=== PATIENT | female | born 1995 | race American Indian/Alaskan Native ===

== ENCOUNTER 2017-04-25 19:53 | Emergency (ER) | payer MEDICAID ==
[2017-04-25 20:02] VITALS: BP 132/76
[2017-04-25] MEDS ORDERED: TYLENOL PO ONE (20:05)
[2017-04-25] MEDS ORDERED: TYLENOL ONE (20:08)
--- NOTE | 2017-04-25 23:42 | Emergency Department Report ---
HPI - General Chief Complaint: Sore Throat Time Seen by Provider: 04/25/17 22:46 - HPI HPI: Patient is a 21-year-old male who presents to ED with his mother complaining of throat pain 7 days. Patient describes pain as throbbing in nature, 6 out of 10 intensity, nonradiating, localized to his throat. Admits pain with swallowing and eating. Patient admits fever for the first 2 days but not at the moment. Patient denies nausea/vomiting/abdominal pain/shortness of breath/chest pain/ headache. ED Past Medical Hx - Past Medical History Previous Medical History?: No - Surgical History Past Surgical History?: Yes Additional Surgical History: - Social History Smoking Status: Never Smoker Substance Use Type: None - Medications Home Medications: Home Medications Medication Instructions Recorded Confirmed Last Taken Type Ibuprofen [Motrin] 800 mg PO Q8HR PRN #30 tablet 04/25/17 Unknown Rx Nystas/Diphen/Xyl Visc/Mylanta 15 ml MM Q4H PRN #100 ml 04/25/17 Unknown Rx [Magic Mouthwash] ED Review of Systems ROS: Stated complaint: FITZPATRICK/BODY ACHE/SORE THROAT Other details as noted in HPI Constitutional: denies: chills, fever Eyes: denies: eye pain, eye discharge, vision change ENT: throat pain. denies: ear pain Respiratory: denies: cough, shortness of breath, wheezing Cardiovascular: denies: chest pain, palpitations Endocrine: no symptoms reported Gastrointestinal: denies: abdominal pain, nausea, diarrhea Genitourinary: denies: urgency, dysuria, discharge Musculoskeletal: myalgia. denies: back pain, joint swelling, arthralgia Skin: denies: rash, lesions, pruritus Neurological: denies: headache, weakness, numbness, paresthesias, confusion Psychiatric: denies: anxiety, depression Hematological/Lymphatic: denies: easy bleeding, easy bruising Physical Exam - Physical Exam Vital Signs: Vital Signs 04/25/17 19:56 Temperature 98.4 F Pulse Rate 111 H Respiratory 20 Rate Blood Pressure 132/76 O2 Sat by Pulse 100 Oximetry Physical Exam: GENERAL: Alert and oriented x3, no apparent distress, Normal Gait, atraumatic. EARS: symetrical, atraumatic, non tender, ear canal clear and moderate cerumen, tympanic membrance non inflamed. gross auditory nml bilaterally. NOSE: Nose symetrical, Nontender,Nares appeared normal. MOUTH:Mouth is well hydrated and without lesions. Tonsils nonerythematous or swollen, Uvula midline, Tongue not elevated. Mucous membranes are moist. Posterior pharynx clear, no exudate or lesions. Patent airways. NECK: Supple. Non edematous, No lymphadenopathy or thyromegaly. No C-spine tenderness LUNGS: Symetrical with respiration, No wheezing, no rales or crackles, CTAB. HEART: S1, S2 present, regular rate and rhythm without murmur, no rubs, no gallops. Non tender to palpation SKIN: Warm and dry, No lesions, No ulceration or induration present. ED Course Vital Signs 04/25/17 19:56 Temperature 98.4 F Pulse Rate 111 H Respiratory 20 Rate Blood Pressure 132/76 O2 Sat by Pulse 100 Oximetry ED Medical Decision Making - Medical Decision Making 24-year-old female presents with pharyngitis. ED course: Rapid strep tests ordered rapid strep test negative No fever in ED Vital signs stable patient is in no acute or respiratory distress. Discussed findings with patient about the positive strep. Discussed treatment in ED with patient Pt to be sent home on Motrin and a couple of days worth of prednisone. Discussed with patient follow-up with primary care physician. Patient verbally states he understands and will comply to follow-up. Critical care attestation.: If time is entered above; I have spent that time in minutes in the direct care of this critically ill patient, excluding procedure time. ED Disposition Clinical Impression: Pharyngitis Qualifiers: Pharyngitis/tonsillitis etiology: unspecified etiology Qualified Code(s): J02.9 - Acute pharyngitis, unspecified Disposition: -01 TO HOME OR SELFCARE Is pt being admited?: No Does the pt Need Aspirin: No Condition: Stable Instructions: Pharyngitis (ED) Additional Instructions: Make sure to follow up with the primary care physician as discussed. Take all your medications as you've been prescribed. If you have any worsening symptoms or develop new symptoms please return to ED immediately. Prescriptions: Ibuprofen [Motrin] 800 mg PO Q8HR PRN #30 tablet PRN Reason: Pain Nystas/Diphen/Xyl Visc/Mylanta [Magic Mouthwash] 15 ml MM Q4H PRN #100 ml PRN Reason: Sore Throat Referrals: EYAL GILES MD [Primary Care Provider] - 3-5 Days [facility] [Outside] - 3-5 Days [facility] [Outside] - 3-5 Days [facility] [Outside] - 3-5 Days Forms: Accompanied Note Time of Disposition: 23:44
[2017-04-25] MEDS ORDERED: DELTASONE PO ONE (23:44)
== END 2017-04-26 00:35 | disposition home or self-care (01) ==
LOC: ED 19:53
DX: J02.9 Acute pharyngitis, unspecified (principal); Z88.0 Allergy status to penicillin
CPT/HCPCS: 87116; 87430; 99283; J7512

== ENCOUNTER 2017-07-29 10:39 | Emergency (ER) | payer MEDICAID | END 2017-07-29 10:40 | disposition left against medical advice (07) | LOC: ED 10:39 | DX: M25.529 Pain in unspecified elbow (principal); Z88.0 Allergy status to penicillin; W18.30XA Fall on same level, unspecified, initial encounter; Y93.89 Activity, other specified; Y99.8 Other external cause status; Y92.89 Other specified places as the place of occurrence of the external cause; Z53.21 Procedure and treatment not carried out due to patient leaving prior to being seen by health care provider ==

== ENCOUNTER 2019-04-13 10:32 | Emergency (ER) | payer SELFPAY ==
--- NOTE | 2019-04-13 11:49 | Event Note ---
ED Screening Note ED Screening Note: states beginning last week had blisters on the vaginal area but they have now gone away states that she has a blister on the lip for three days states the person she is having intercourse with has herpes no dyuria no fever no abd pain no pelvic pain no n/v/d no pmhx allergy: pencillin states she did perform oral sex on the partner
--- NOTE | 2019-04-13 12:05 | Emergency Department Report ---
ED General Adult HPI - General Chief complaint: Urogenital-Female Stated complaint: POSS STD Time Seen by Provider: 04/13/19 11:45 Source: patient Mode of arrival: Ambulatory Limitations: No Limitations - History of Present Illness Initial comments: pt is a 23 yo female who presents to the ED who states states that she has a blister on the left side of the lip for three days. she states that beginning last week had blisters on the vaginal area but they have now gone away. she states the person she is having intercourse with has herpes. she denies any dyuria, no fever, no abd pain, no pelvic pain, no n/v/d. no pmhx. allergy: pencillin. states she did perform oral sex on the partner. - Related Data Previous Rx's Medication Instructions Recorded Last Taken Type Ibuprofen [Motrin] 800 mg PO Q8HR PRN #30 tablet 04/25/17 Unknown Rx Nystas/Diphen/Xyl Visc/Mylanta 15 ml MM Q4H PRN #100 ml 04/25/17 Unknown Rx [Magic Mouthwash] Acyclovir 400 mg PO TID 10 Days #30 tablet 04/13/19 Unknown Rx Allergies Allergy/AdvReac Type Severity Reaction Status Date / Time Penicillins Allergy Unknown Verified 04/25/17 20:04 ED Review of Systems ROS: Stated complaint: POSS STD Other details as noted in HPI Comment: All other systems reviewed and negative ED Past Medical Hx - Past Medical History Previous Medical History?: No - Surgical History Additional Surgical History: 2017. 2012 - Social History Smoking Status: Never Smoker Substance Use Type: None, Marijuana - Medications Home Medications: Home Medications Medication Instructions Recorded Confirmed Last Taken Type Ibuprofen [Motrin] 800 mg PO Q8HR PRN #30 tablet 04/25/17 Unknown Rx Nystas/Diphen/Xyl Visc/Mylanta 15 ml MM Q4H PRN #100 ml 04/25/17 Unknown Rx [Magic Mouthwash] Acyclovir 400 mg PO TID 10 Days #30 tablet 04/13/19 Unknown Rx ED Physical Exam - General Limitations: No Limitations General appearance: alert, in no apparent distress - Head Head exam: Present: atraumatic, normocephalic - Eye Eye exam: Present: normal appearance - ENT ENT exam: Present: mucous membranes moist, other (small area of blisters coalasced and small amount of edema to the left lower lip) - Neurological Exam Neurological exam: Present: alert, oriented X3 - Psychiatric Psychiatric exam: Present: normal affect, normal mood - Skin Skin exam: Present: warm, dry, intact ED Course Vital Signs 04/13/19 10:59 Temperature 98.3 F Pulse Rate 89 Respiratory 16 Rate Blood Pressure 122/55 O2 Sat by Pulse 100 Oximetry ED Medical Decision Making - Medical Decision Making pt is a 23 yo female who presents to the ED who states states that she has a blister on the left side of the lip for three days. she states that beginning last week had blisters on the vaginal area but they have now gone away. she states the person she is having intercourse with has herpes. she denies any dyuria, no fever, no abd pain, no pelvic pain, no n/v/d. no pmhx. allergy: pencillin. states she did perform oral sex on the partner. VSS. on exam: small area of blisters coalesced and small amount of edema to the left lower lip. Examination consistent with oral herpes simplex virus. Patient given prescription for acyclovir. Patient is not having any vaginal discharge, urinary symptoms, abdominal pain, pelvic pain and states that the sores in the vaginal area have resolved. Will have patient follow-up with the health department for full STD panel. advised pt to please take medication as prescribed. please avoid sexual or oral intercourse until 5 days after all bumps have scabbed over and gone away. please have all partners tested and treated as well. this is a life long infection and can be transmitted to others even during the tingling stage when bumps have not appeared. please practice safe sex. please go to the health department for a full STD panel. return to the emergency room for any new or worsening symptoms. Critical care attestation.: If time is entered above; I have spent that time in minutes in the direct care of this critically ill patient, excluding procedure time. ED Disposition Clinical Impression: Herpes Disposition: DC-01 TO HOME OR SELFCARE Is pt being admited?: No Does the pt Need Aspirin: No Condition: Stable Instructions: Genital Herpes Simplex (ED), Oral Herpes Simplex Virus Infections (ED) Additional Instructions: please take medication as prescribed. please avoid sexual or oral intercourse until 5 days after all bumps have scabbed over and gone away. please have all partners tested and treated as well. this is a life long infection and can be transmitted to others even during the tingling stage when bumps have not appeared. please practice safe sex. please go to the health department for a ful l STD panel. return to the emergency room for any new or worsening symptoms. Prescriptions: Acyclovir 400 mg PO TID 10 Days #30 tablet Referrals: [facility] [Outside] - 2-3 Days [facility] [Outside] - 2-3 Days [facility] [Outside] - 2-3 Days CAR MEJIA MD [Staff Physician] - 2-3 Days Time of Disposition: 12:51 Print Language: SINHALA
[2019-04-13 12:15] VITALS: BP 122/55
== END 2019-04-13 13:14 | disposition home or self-care (01) ==
LOC: ED 10:32
DX: B00.9 Herpesviral infection, unspecified (principal); F12.10 Cannabis abuse, uncomplicated; Z79.1 Long term (current) use of non-steroidal anti-inflammatories (NSAID); Z79.899 Other long term (current) drug therapy; Z88.0 Allergy status to penicillin; Z98.890 Other specified postprocedural states
CPT/HCPCS: 99282

== ENCOUNTER 2021-08-29 13:43 | Emergency (ER) | payer SELFPAY ==
[2021-08-29] MEDS ORDERED: ACETAMINOPHEN 500 MG TAB PO ONE (15:35)
--- NOTE | 2021-08-29 16:08 | XRay Report ---
CHEST 2 VIEWS INDICATION / CLINICAL INFORMATION: shortness of breath, cough. COMPARISON: None available. FINDINGS: SUPPORT DEVICES: None. HEART / MEDIASTINUM: No significant abnormality. LUNGS / PLEURA: No significant pulmonary or pleural abnormality. No pneumothorax. ADDITIONAL FINDINGS: No significant additional findings. IMPRESSION: 1. No acute findings. Signer Name: Angel Trevino MD Signed: 08/29/2021 4:03 PM Workstation Name: [id number]
--- NOTE | 2021-08-29 16:48 | Emergency Department Report ---
Minor Respiratory - HPI Chief Complaint: Fever Stated Complaint: COVID SX Time Seen by Provider: 08/29/21 16:47 ED Review of Systems ROS: Stated complaint: COVID SX Other details as noted in HPI Comment: All other systems reviewed and negative ED Past Medical Hx - Past Medical History Previous Medical History?: No - Surgical History Past Surgical History?: Yes Additional Surgical History: 2017. 2012 - Family History Family history: no significant - Social History Smoking Status: Never Smoker Substance Use Type: Alcohol (Occasional), Marijuana - Medications Home Medications: Home Medications Medication Instructions Recorded Confirmed Last Taken Type Ibuprofen [Motrin] 800 mg PO Q8HR PRN #30 tablet 04/25/17 Unknown Rx Nystas/Diphen/Xyl Visc/Mylanta 15 ml MM Q4H PRN #100 ml 04/25/17 Unknown Rx [Magic Mouthwash] Acyclovir 400 mg PO TID 10 Days #30 tablet 04/13/19 Unknown Rx Minor Respiratory Exam - Exam General: Vital signs noted. No distress. Alert and acting appropriately. HEENT: Yes Moist Mucous Membranes, No Pharyngeal Erythema, No Pharyngeal Exudates, No Rhinorrhea, No Conjuctival Injection, No Frontal Tenderness, No Maxillary Tenderness Ear: Neither TM Bulge, Neither TM Erythema, Neither EAC Pain, Neither EAC Discharge Neck: Yes Supple, No Adenopathy Lungs: Yes Good Air Exchange, No Wheezes, No Ronchi, No Stridor, No Cough, No Labored Respirations, No Retractions, No Use of Accessory Muscles, No Other Abnormal Lung Sounds Heart: Yes Regular, No Murmur Abdomen: Yes Normal Bowel Sounds, No Tenderness, No Peritoneal Signs Skin: No Rash, No Edema Neurologic: Alert and oriented, no deficits. Musculoskeletal: Unremarkable. ED Course Vital Signs 08/29/21 15:29 Temperature 100.8 F H Pulse Rate 118 H Respiratory 20 Rate Blood Pressure 116/77 [Left] O2 Sat by Pulse 100 Oximetry ED Medical Decision Making - Radiology Data Radiology results: report reviewed, image reviewed Critical care attestation.: If time is entered above; I have spent that time in minutes in the direct care of this critically ill patient, excluding procedure time. ED Disposition Clinical Impression: URI (upper respiratory infection), Fever Disposition: HOME / SELF CARE / HOMELESS Is pt being admited?: No Does the pt Need Aspirin: No Condition: Stable Instructions: Viral Respiratory Infection, [id number] Additional Instructions: STAY WELL HYDRATED WITH WATER MOTRIN OR TYLENOL FOR PAIN OR FEVER OVER THE COUNTER SYMPTOM RELIEF FOLLOW UP WITH PCP IF SYMPTOMS PERSIST Referrals: CAR MEJIA MD [Staff Physician] - 3-5 Days Forms: Work/School Release Form(ED) Time of Disposition: 16:53
[2021-08-29 17:12] VITALS: BP 127/80
== END 2021-08-29 17:11 | disposition home or self-care (01) ==
LOC: ED 13:43
DX: J06.9 Acute upper respiratory infection, unspecified (principal); F12.90 Cannabis use, unspecified, uncomplicated; Z72.89 Other problems related to lifestyle; Z88.0 Allergy status to penicillin; Z79.899 Other long term (current) drug therapy
CPT/HCPCS: 71046; 99283